=== PATIENT | male | born 1985 | race Caucasian/White ===

== ENCOUNTER 2018-08-18 08:16 | Emergency (ER) | payer OTHER ==
[~2018-08-18] VITALS: Ht 177.8 cm; Wt 84.7 kg
[2018-08-18] MEDS ORDERED: ALBU90AE INH (08:34)
[2018-08-18 10:40] VITALS: BP 141/78
== END 2018-08-18 10:44 | disposition home or self-care (01) ==
LOC: ED 10:40
DX: S16.1XXA Strain of muscle, fascia and tendon at neck level, initial encounter (principal); W22.8XXA Striking against or struck by other objects, initial encounter; Y93.89 Activity, other specified; Y92.89 Other specified places as the place of occurrence of the external cause; Y99.8 Other external cause status
CPT/HCPCS: 72125; 99284